=== PATIENT | female | born 1930 | race Caucasian/White ===

== ENCOUNTER 2017-04-26 13:02 | Emergency (ER) | payer MEDICARE, BC, OTHER ==
[2017-04-26] MEDS ORDERED: METHYLPREDNISOLONE INJ 125 MG/2 ML SDV IV ONE (14:17)
--- NOTE | 2017-04-26 14:17 | ER Document Report ---
ED Respiratory Problem - General Chief Complaint: Breathing Difficulty Stated Complaint: DIFFICULTY BREATHING Time Seen by Provider: 04/26/17 13:57 Information source: Patient TRAVEL OUTSIDE OF THE [place] IN LAST 30 DAYS: Yes - HPI Notes: 86-year-old female with history of atrial fibrillation currently on Xarelto, hyperlipidemia and hypertension presents with breathing difficulty for the last 6 days worse the last 3 or 4. Particularly bothersome is a cough which causes tightening in the throat particularly when she is lying down. She notes some mild sputum production but no hemoptysis. Denies any chest discomfort. No new leg swelling or calf pain. She has not noted any fever. She has used Mucinex at home but this seemed to keep her awake at night. Most of her symptoms she feels are more in her throat which she notes the intermittent episodes. It is worse when she lies down so she will go to the recliner which seems to help somewhat but she is really unable to sleep in the recliner. Denies vomiting diarrhea. Denies other new pain otherwise. She was seen yesterday and was placed on Augmentin for what she states was an upper respiratory infection. - Related Data Allergies/Adverse Reactions: erythromycin base [From Erygel] Allergy (Severe, Verified 01/11/14 19:02) sick to stomach amoxicillin [Amoxicillin] Allergy (Verified 01/11/14 19:02) Past Medical History - Social History Smoking Status: Never Smoker Family History: Reviewed & Not Pertinent - Past Medical History Cardiac Medical History: Reports: Hx Atrial Fibrillation, Hx Congestive Heart Failure, Hx Hypercholesterolemia, Hx Hypertension Denies: Hx Coronary Artery Disease, Hx Heart Attack, Hx Peripheral Vascular Disease, Hx Pulmonary Embolism, Hx Heart Murmur Pulmonary Medical History: Reports: Hx Pneumonia - 08/13/12 Denies: Hx Asthma, Hx Bronchitis, Hx COPD, Hx Respiratory Failure, Hx Sleep Apnea, Hx Tuberculosis Neurological Medical History: Denies: Hx Cerebrovascular Accident, Hx Seizures Endocrine Medical History: Reports: Hx Diabetes Mellitus Type 2. Denies: Hx Graves' Disease, Hx Hyperthyroidism, Hx Hypothyroidism Renal/ Medical History: Reports: Hx Ovarian Cysts. Denies: Hx End Stage Renal Disease, Hx Kidney Stones, Hx Peritoneal Dialysis, Hx Pelvic Inflammatory Disease Malignancy Medical History: Denies: Hx Breast Cancer, Hx Cervical Cancer, Hx Leukemia, Hx Lung Cancer, Hx Ovarian Cancer GI Medical History: Reports: Hx Gastroesophageal Reflux Disease - coughing ? reflux, Hx Ulcer - . Denies: Hx Crohn's Disease, Hx Hiatal Hernia, Hx Irritable Bowel, Hx Liver Failure, Hx Pancreatitis Musculoskeltal Medical History: Reports Hx Arthritis - Osteo, Denies Hx Fibromyalgia, Denies Hx Multiple Sclerosis, Denies Hx Muscular Dystrophy Psychiatric Medical History: Reports: Hx Depression Denies: Hx Bipolar Disorder, Hx Dementia, Hx Post Traumatic Stress Disorder, Hx Schizophrenia Traumatic Medical History: Denies: Hx Fractures Infectious Medical History: Denies: Hx HIV Past Surgical History: Reports: Hx Appendectomy - 1957, Hx Cholecystectomy - 2002, Hx Hysterectomy - 1969,1999 BSO, Hx Orthopedic Surgery - right knee X2, left ankle fusion. Denies: Hx Bowel Surgery, Hx Section, Hx Colostomy , Hx Coronary Artery Bypass Graft, Hx Gastric Bypass Surgery, Hx Herniorrhaphy, Hx Mastectomy, Hx Pacemaker, Hx Tonsillectomy, Hx Tubal Ligation - Immunizations Hx Diphtheria, Pertussis, Tetanus Vaccination: Yes - 2005 Hx Pneumococcal Vaccination: 01/11/11 Review of Systems - Review of Systems -: Yes All other systems reviewed and negative Physical Exam - Vital signs Vitals: Resp Pulse Ox 20 98 04/26/17 13:39 04/26/17 13:39 Notes: Physical Exam: GENERAL: VS as per nursing doc. thin female, no apparent distress, slightly hoarse. HEAD: Atraumatic, normocephalic. EYES: Pupils equal round and reactive to light, extraocular movements intact, sclera anicteric, no conjunctival injection or discharge. ENT: Nares patent, oropharynx clear without exudates. There is no evidence of mass, airway is widely patent, moist mucous membranes. NECK: Normal range of motion, supple without lymphadenopathy. LUNGS: Breath sounds are clear to auscultation, slightly coarse. There is some mild upper airway sounds noted. HEART: Normal S1S2. Regular rate and rhythm without faint systolic murmur noted. Equal peripheral pulses. ABDOMEN: Soft, non-tender. EXTREMITIES: Normal range of motion. No calf tenderness. Negative Homans. No edema. NEUROLOGICAL: Normal speech. Normal sensory and motor exams. No gross cerebellar abnormalities. PSYCH: Normal mood, normal affect. Oriented 4. SKIN: Warm, dry, no cyanosis, no splinter hemorrhages. Cap refill < 2 sec. Course - Re-evaluation Re-evalutation: 04/26/17 17:23 Reviewed findings with the patient. She feels better at this point right now. She has not had any more of her proximal coughing episodes which I suspect is laryngeal spasm by what she describes. Steroids seem to have helped at this point. She will continue the Augmentin which she is on. I discussed with her what is written as a prior allergy to amoxicillin. She believes she just had some increased diarrhea with the amoxicillin in the past. We will give her an albuterol inhaler here and make sure she can use it. She will get close recheck in the next couple of days. The sputum here is now starting to become a little bit yellow. She is only had the 2 doses of Augmentin up to this point for the next being due tonight. At this time, we will discharge the patient with return precautions and follow-up recommendations discussed and understood. Verbal discharge instructions given at the bedside and opportunity for questions given and answered. Medication warnings reviewed. Patient is in agreement with this plan and has verbalized understanding of return precautions and the need for primary care follow-up in the next 24-72 hours. - Vital Signs Vital signs: Temp Pulse Resp BP Pulse Ox 98.3 F 20 102/76 98 04/26/17 13:50 04/26/17 13:39 04/26/17 13:50 04/26/17 13:39 - Laboratory Result Diagrams: 04/26/17 14:50 04/26/17 14:50 Laboratory results interpreted by me: 04/26/17 14:50 Sodium 136.1 L BUN 26 H - Diagnostic Test Radiology reviewed: Image reviewed, Reports reviewed - No acute process - EKG Interpretation by Me EKG shows normal: Sinus rhythm - Rate 60, no clear ischemia, normal QRS. Normal intervals. Discharge - Discharge Clinical Impression: Upper respiratory infection, Laryngospasm Condition: Good Disposition: HOME, SELF-CARE Additional Instructions: Continue your antibiotic twice daily until gone or causing significant side effects or severe diarrhea. Since you received her first dose of steroids here today, please start the prescribed Prednisone tomorrow and complete all 5 days of the prescribed medication. Return for any problem or concern, worsening at all. With the provided albuterol inhaler, use it 2 puffs every 6 hours while awake until improved, then as needed. Prescriptions: Prednisone [Deltasone 20 mg Tablet] 2 tab PO DAILY 5 Days #10 tablet Referrals: YAMINI VENCES MD [Primary Care Provider] - Follow up as needed
[2017-04-26] MEDS ORDERED: IPRATROPIUM/ALBUTEROL 0.5-2.5 MG/3 ML AMPUL NEB ONE (14:18)
[2017-04-26 15:02] LABS: ABSOLUTE LYMPHOCYTES (AUTO) 1.8 10^3/uL (0.5-4.7); ABSOLUTE MONOCYTES (AUTO) 0.4 10^3/uL (0.1-1.4); ABSOLUTE NEUT (AUTO) 1.9 10^3/uL (1.7-8.2); BASOPHILS % (AUTO) 0.3 % (0-2); EOSINOPHILS % (AUTO) 0.2 % (0-6); HEMATOCRIT 36.5 % (36.0-47.0); HEMOGLOBIN 12.3 g/dL (12.0-15.5); LYMPHOCYTES % (AUTO) 44.4 % (13-45); MEAN CORPUSCULAR HEMOGLOBIN 29.4 pg (27.0-33.4); MEAN CORPUSCULAR HGB CONC 33.6 g/dL (32.0-36.0); MEAN CORPUSCULAR VOLUME 88 fl (80-97); MONOCYTES % (AUTO) 9.3 % (3-13); PLATELET COUNT 175 10^3/uL (150-450); RED BLOOD COUNT 4.18 10^6/uL (3.72-5.28); RED CELL DISTRIBUTION WIDTH 13.6 % (11.5-14.0); SEGMENTED NEUTROPHILS % (AUTO) 45.8 % (42-78); TOTAL CELLS COUNTED % (AUTO) 100 %; WHITE BLOOD COUNT 4.1 10^3/uL (4.0-10.5)
[2017-04-26 15:33] LABS: ANION GAP 12 (5-19); BLOOD UREA NITROGEN 26 mg/dL (7-20); CALCIUM 9.4 mg/dL (8.4-10.2); CARBON DIOXIDE 23 mmol/L (22-30); CHLORIDE 101 mmol/L (98-107); GLUCOSE 96 mg/dL (75-110); POTASSIUM 4.4 mmol/L (3.6-5.0); SODIUM 136.1 mmol/L (137-145)
[2017-04-26 15:48] LABS: A TYPE INFLUENZA AG NEGATIVE (NEGATIVE)
[2017-04-26 15:49] LABS: B INFLUENZA AG NEGATIVE (NEGATIVE)
--- NOTE | 2017-04-26 16:01 | RADIOLOGY REPORT (SQ) ---
EXAM DESCRIPTION: CERV SP 3 VIEW OR LESS COMPLETED DATE/TIME: 04/26/2017 3:51 pm REASON FOR STUDY: Soft Tissue, Pain/swelling COMPARISON: None. NUMBER OF VIEWS: Two views TECHNIQUE: AP and lateral radiographic images acquired of the cervical spine. LIMITATIONS: None. FINDINGS: MINERALIZATION: Normal. ALIGNMENT: There is some loss of the normal cervical lordosis with grade 1 anterolisthesis of C 4 in relation to C5 VERTEBRAE: Vertebral bodies of normal height. DISCS: There is almost complete loss of the C5-C6 and C6-C7 disc space heights with associated osteop hytic lipping. There is decrease in the C4-C5 disc space height. HARDWARE: None in the spine. SOFT TISSUES: No masses or calcifications. Lung apices clear. OTHER: No other significant finding. IMPRESSION: Degenerative changes as noted above. TECHNICAL DOCUMENTATION: JOB ID: [id number] [employer]- All Rights Reserved
--- NOTE | 2017-04-26 16:03 | RADIOLOGY REPORT (SQ) ---
EXAM DESCRIPTION: CHEST PA/LAT COMPLETED DATE/TIME: 04/26/2017 3:51 pm REASON FOR STUDY: Dyspnea COMPARISON: March 2013 EXAM PARAMETERS: NUMBER OF VIEWS: two views TECHNIQUE: Digital Frontal and Lateral radiographic views of the chest acquired. RADIATION DOSE: NA LIMITATIONS: none FINDINGS: LUNGS AND PLEURA: No opacities, masses or pneumothorax. No pleural effusion. MEDIASTINUM AND HILAR STRUCTURES: No masses or contour abnormalities. HEART AND VASCULAR STRUCTURES: Heart normal size. No evidence for failure. BONES: No acute findings. HARDWARE: None in the chest. OTHER: No other significant finding. IMPRESSION: NO SIGNIFICANT RADIOGRAPHIC FINDING IN THE CHEST. TECHNICAL DOCUMENTATION: JOB ID: [id number] [employer]- All Rights Reserved
[2017-04-26] MEDS ORDERED: ALBUTEROL SULFATE HFA (90 MCG/PUFF) 8 GM MDI (1 MDI/ER DISP) IH PRN (17:31)
[2017-04-26 17:58] VITALS: BP 146/87
--- NOTE | 2017-04-26 20:21 | EKG REPORT ---
SEVERITY:- NORMAL ECG - SINUS RHYTHM : Confirmed by: Inés Rdz 26-Apr-2017 20:20:23
== END 2017-04-26 17:55 | disposition home or self-care (01) ==
LOC: ER 13:02
DX: J06.9 Acute upper respiratory infection, unspecified (principal); J38.5 Laryngeal spasm; R06.02 Shortness of breath; I48.91 Unspecified atrial fibrillation; Z79.01 Long term (current) use of anticoagulants; E78.5 Hyperlipidemia, unspecified; I10 Essential (primary) hypertension; R05 Cough
CPT/HCPCS: 93005; 94640; 99285; 96374; 36415; 85025; 80048; 87804; 72040; 71046; 93010; J2930; J3490; A9270; J7620

== ENCOUNTER 2018-06-12 14:31 | Emergency (ER) | payer MEDICARE, BC, OTHER ==
--- NOTE | 2018-06-12 15:06 | ER Document Report ---
ED General - General Chief Complaint: Fall Stated Complaint: FALL Time Seen by Provider: 06/12/18 14:37 Primary Care Provider: YAMINI VENCES MD [NO LOCAL MD] - Follow up as needed TRAVEL OUTSIDE OF THE [place] IN LAST 30 DAYS: Yes - HPI Notes: Patient is an 87-year-old female with a history of A. fib (on Xarelto), hypertension, and hypercholesterolemia who presents emergency department complaining of abrasions and pain status post fall. Patient states that she was walking to her car when she tripped and fell on the sidewalk. Patient states that she hit the left side of her face and has pain to the left arm/elbow, knees bilaterally, right hand with thumb laceration, and left hip. Patient states that she has otherwise felt well and has not had any recent illness. She has been eating and drinking without difficulty. She is urinating normally. She has no other concerns or complaints. No precipitating symptoms as patient describes this was a fall due to loss of footing. Denies any headache, fever, neck pain, changes in vision/speech/mentation/hearing, URI, sore throat, chest pain, palpitations, syncope, cough, shortness of breath, wheeze, dyspnea, abdominal pain, nausea/vomiting/diarrhea, urinary retention, dysuria, hematuria, loss of control of bowel or bladder, numbness/tingling, saddle anesthesia, muscle paralysis/weakness, or rash. - Related Data Allergies/Adverse Reactions: erythromycin base [From Erygel] Allergy (Severe, Verified 01/11/14 19:02) sick to stomach amoxicillin [Amoxicillin] Allergy (Verified 01/11/14 19:02) Past Medical History - Social History Smoking Status: Never Smoker Family History: Reviewed & Not Pertinent - Past Medical History Cardiac Medical History: Reports: Hx Atrial Fibrillation, Hx Congestive Heart Failure, Hx Hypercholesterolemia, Hx Hypertension Denies: Hx Coronary Artery Disease, Hx Heart Attack, Hx Peripheral Vascular Disease, Hx Pulmonary Embolism, Hx Heart Murmur Pulmonary Medical History: Reports: Hx Pneumonia - 08/13/12 Denies: Hx Asthma, Hx Bronchitis, Hx COPD, Hx Respiratory Failure, Hx Sleep Apnea, Hx Tuberculosis Neurological Medical History: Denies: Hx Cerebrovascular Accident, Hx Seizures Endocrine Medical History: Reports: Hx Diabetes Mellitus Type 2. Denies: Hx Graves' Disease, Hx Hyperthyroidism, Hx Hypothyroidism Renal/ Medical History: Reports: Hx Ovarian Cysts. Denies: Hx End Stage Renal Disease, Hx Kidney Stones, Hx Peritoneal Dialysis, Hx Pelvic Inflammatory Disease Malignancy Medical History: Denies: Hx Breast Cancer, Hx Cervical Cancer, Hx Leukemia, Hx Lung Cancer, Hx Ovarian Cancer GI Medical History: Reports: Hx Gastroesophageal Reflux Disease - coughing ? reflux, Hx Ulcer - . Denies: Hx Crohn's Disease, Hx Hiatal Hernia, Hx Irritable Bowel, Hx Liver Failure, Hx Pancreatitis Musculoskeletal Medical History: Reports Hx Arthritis - Osteo, Denies Hx Fibromyalgia, Denies Hx Multiple Sclerosis, Denies Hx Muscular Dystrophy Psychiatric Medical History: Reports: Hx Depression Denies: Hx Bipolar Disorder, Hx Dementia, Hx Post Traumatic Stress Disorder, Hx Schizophrenia Traumatic Medical History: Denies: Hx Fractures Infectious Medical History: Denies: Hx HIV Past Surgical History: Reports: Hx Appendectomy - 1957, Hx Cholecystectomy - 2002, Hx Hysterectomy - 1969,1999 BSO, Hx Orthopedic Surgery - right knee X2, left ankle fusion. Denies: Hx Bowel Surgery, Hx Section, Hx Colostomy, Hx Coronary Artery Bypass Graft, Hx Gastric Bypass Surgery, Hx Herniorrhaphy, Hx Mastectomy, Hx Pacemaker, Hx Tonsillectomy, Hx Tubal Ligation - Immunizations Hx Diphtheria, Pertussis, Tetanus Vaccination: Yes - 2005 Hx Pneumococcal Vaccination: 01/11/11 Review of Systems - Review of Systems -: Yes All other systems reviewed and negative Physical Exam - Vital signs Vitals: Temp Pulse Resp BP Pulse Ox 97.6 F 69 18 189/51 H 98 06/12/18 14:55 06/12/18 14:55 06/12/18 14:55 06/12/18 14:55 06/12/18 14:55 - Notes Notes: PHYSICAL EXAMINATION: accompanied by female nursejulia GENERAL: Well-appearing, well-nourished and in no acute distress. A&Ox4. Answers questions appropriately. Very pleasant. HEAD/face: there is mild ecchymosis to the left inferolateral orbit with a small abrasion to the left superior eyebrow. No raccoon eyes/sharpe sign. No cranial tenderness, bogginess, or hematoma. No missing/loose teeth or other facial tenderness. EYES: Pupils equal round and reactive to light, extraocular movements intact, sclera anicteric, conjunctiva are normal. No entrapment ENT: EAC clear b/l. TM's intact b/l without erythema, fluid, or perforation. Nares patent and without discharge. oropharynx clear without exudates. No t onsilar hypertrophy or erythema. Moist mucous membranes. No sinus tenderness. No hemotympanum/CSF discharge. NECK: Normal range of motion, supple without lymphadenopathy. No rigidity. No midline tenderness. Chest: no ecchymosis. No flail chest. equal rise/fall. Non-tender LUNGS: Breath sounds clear to auscultation bilaterally and equal. No wheezes rales or rhonchi. HEART: Regular rate and rhythm without murmurs, rubs, gallops. ABDOMEN: Soft, nontender, nondistended abdomen. No guarding, no rebound. No masses appreciated. Normal bowel sounds present. No CVA tenderness bilater ally. No ecchymosis Musculoskeletal: Rt hand: there is an avulsion skin injury to the anterodistal thumb with + tenderness and swelling associated to the hand/thumb. LROM at IP jt. Strength 5+/5. N/V intact distal. Left UE: there is tenderness to palpation of the prox and distal humerus and to the left elbow w/o significant deformity, ecchymosis, or erythema. There is bursitis to the left elbow noted without erythema (chronic per patient). FROM. Strength 5+/5. N/V intact distal. Lt hip/knee: + tenderness to the left lateral hip and to the distal femur/proximal knee. There is also tenderness to the anterior knee to palp w/ecchymosis and a small skin abrasion. FROM otherwise. Strength 5+/5. N/V intact distal. Low back: FROM to passive/active. Strength 5+/5. No stepoffs or deformities. No other bony tenderness or ecchymosis. + mild tenderness b/l L-spine. No foot drop. Extremities: No cyanosis, clubbing, or edema b/l. Peripheral pulses 2+. Capillary refill less than 2 seconds. NEUROLOGICAL: NIH 0. GCS 15. Cranial nerves grossly intact. Normal speech. Normal sensory, motor exams. Reflexes 2+ b/l. GLENDY's negative. Pronator drift negative. Heel/michel, finger/nose wnl. PSYCH: Normal mood, normal affect. SKIN: see above. Course - Re-evaluation Re-evalutation: 06/12/18 17:21 Patient is an afebrile, well-hydrated, 87-year-old female who presents to the ED with joint pains s/p fall and rt thumb dislocation with noted skin abrasions. Vitals are acceptable without any significant tachycardia, tachypnea, or hypoxia. PE is otherwise unremarkable for any neurovascular compromise, obvious tendon/ligament rupture, septic joint. CT imaging of the head/neck/face unremarkable. XR's grossly unremarkable for acute pathology aside from the rt thumb dislocation. Thumb was reduced successfully w/o any complications. Finger splint provided today along with Tdap and wound care. Patient is nontoxic-appearing. Patient is able to ambulate and weight-bear. No other labs or imaging warranted at this time based on H&P. Rx for keflex as precautionary due to skin avulsion on thumb and noted abrasions. Conservative measures otherwise for symptoms. Recheck with your PCM in 2-3 days. Consider consult orthopedics. Return to the ED with any worsening/concerning symptoms otherwise as reviewed in discharge. Patient is in agreement. Cross-reactivity reviewed (rash with PCN). - Vital Signs Vital signs: Temp Pulse Resp BP Pulse Ox 97.6 F 69 18 189/51 H 98 06/12/18 14:55 06/12/18 14:55 06/12/18 14:55 06/12/18 14:55 06/12/18 14:55 Procedures - Joint Reduction/Fracture Care Right Thumb Time completed: 16:25 Consent obtained: Yes Conscious sedation: No Pre-procedure NV exam: Yes - normal Post-procedure NV exam: Yes - normal Post-reduction x-ray: Joint reduced Reduction attempts: 1 Complications: No Discharge - Discharge Clinical Impression: Abrasion of skin, Left arm pain Fall Qualifiers: Encounter type: initial encounter Qualified Code(s): W19.XXXA - Unspecified fall, initial encounter Avulsion of skin of finger Qualifiers: Encounter type: initial encounter Qualified Code(s): S61.209A - Unspecified open wound of unspecified finger without damage to nail, initial encounter Dislocation of right thumb Qualifiers: Encounter type: initial encounter Qualified Code(s): S63.104A - Unspecified dislocation of right thumb, initial encounter Bilateral knee pain Qualifiers: Chronicity: acute Qualified Code(s): M25.561 - Pain in right knee; M25.562 - Pain in left knee Low back pain Qualifiers: Chronicity: acute Back pain laterality: bilateral Sciatica presence: without sciatica Qualified Code(s): M54.5 - Low back pain Condition: Stable Disposition: HOME, SELF-CARE Instructions: Head Injury Precautions ([facility]) Additional Instructions: Rest, Ice, Compression, Elevation Use crutches/splint as directed Keep the skin clean and wash with soap and water Triple antibiotic ointment with daily dressing changes Tylenol as needed F/u with your PCP in 2-3 days for a recheck Call orthopedics tomorrow to schedule an appointment for further evaluation and management for your thumb Return to the ED with any worsening symptoms and/or development of fever, headache, changes in behavior/mentation/vision/speech, chest pain, palpitations, syncope, shortness of breath, trouble breathing, abdominal pain, n/v/d, blood in stool/urine, loss of control of bowel/bladder, urinary retention, muscle weakness/paralysis, saddle anesthesia, numbness/tingling, or other worsening symptoms that are concerning to you. Prescriptions: Cephalexin Monohydrate [Keflex 500 mg Capsule] 500 mg PO BID #10 capsule Forms: Elevated Blood Pressure Referrals: YAMINI VENCES MD [NO LOCAL MD] - Follow up as needed [facility] [Provider Group] - Follow up in 3-5 days
--- NOTE | 2018-06-12 15:44 | RADIOLOGY REPORT (SQ) ---
EXAM DESCRIPTION: CT HEAD WITHOUT COMPLETED DATE/TIME: 06/12/2018 3:23 pm REASON FOR STUDY: pain s/p fall on xarelto COMPARISON: None. TECHNIQUE: Axial images acquired through the brain without intravenous contrast. Images reviewed wi th bone, brain and subdural windows. Additional sagittal and coronal reconstructions were generated. Images stored on PACS. All CT scanners at this facility use dose modulation, iterative reconstruction, and/or weight based d osing when appropriate to reduce radiation dose to as low as reasonably achievable (ALARA). [facility]: Dose Right [facility]: CareDose [facility]: Dose Right [facility]: Teradose 4D [facility]: Wild Brain RADIATION DOSE: CT Rad equipment meets quality standard of care and radiation dose reduction techniq ues were employed. CTDIvol: 53.2 mGy. DLP: 1124 mGy-cm. mGy. LIMITATIONS: None. FINDINGS: VENTRICLES: Prominent. CEREBRUM: No masses. No hemorrhage. No midline shift. Areas of low density in the white matter mos t likely due to chronic micro-vascular ischemic change. No evidence for acute infarction. CEREBELLUM: No masses. No hemorrhage. No alteration of density. No evidence for acute infarction. EXTRAAXIAL SPACES: Mild age-related involutional change. No fluid collections. No masses. ORBITS AND GLOBE: No intra- or extraconal masses. Normal contour of globe without masses. CALVARIUM: No fracture. PARANASAL SINUSES: Opacified right maxillary sinus. SOFT TISSUES: No mass or hematoma. OTHER: No other significant finding. IMPRESSION: MILD CHRONIC CHANGES OF ATROPHY AND MICROVASCULAR ISCHEMIA. NO ACUTE PROCESS. EVIDENCE OF ACUTE STROKE: NO. TECHNICAL DOCUMENTATION: JOB ID: [id number] Quality ID # [id number]: Final reports with documentation of one or more dose reduction techniques (e.g., Au tomated exposure control, adjustment of the mA and/or kV according to patient size, use of iterative reconstruction technique) 2010 [employer]- All Rights Reserved Reading location - IP/workstation name: [email or web address]
--- NOTE | 2018-06-12 15:46 | RADIOLOGY REPORT (SQ) ---
EXAM DESCRIPTION: CT FACIAL AREA WITHOUT COMPLETED DATE/TIME: 06/12/2018 3:23 pm REASON FOR STUDY: pain s/p fall, left orbital pain COMPARISON: None. TECHNIQUE: Noncontrasted images through the facial bones and orbits windowed for bone and soft tissu e. Additional coronal and sagittal reconstructed images reviewed. All images stored on PACS. All CT scanners at this facility use dose modulation, iterative reconstruction, and/or weight based d osing when appropriate to reduce radiation dose to as low as reasonably achievable (ALARA). [facility]: Dose Right [facility]: CareDose [facility]: Dose Right [facility]: Teradose 4D [facility]: Restaro RADIATION DOSE: CT Rad equipment meets quality standard of care and radiation dose reduction techniq ues were employed. CTDIvol: 30.4 mGy. DLP: 560 mGy-cm. mGy. LIMITATIONS: None. FINDINGS: FACIAL BONES: No fracture or bone lesion. ORBITS: Intact. No fracture. Symmetric intact globes and retroorbital soft tissues. PARANASAL SINUSES: Chronic right maxillary sinusitis. SOFT TISSUES: No mass or edema. INFERIOR BRAIN: See separate report of the same date. OTHER: No other significant finding. IMPRESSION: No fracture. TECHNICAL DOCUMENTATION: JOB ID: [id number] Quality ID # [id number]: Final reports with documentation of one or more dose reduction techniques (e.g., Au tomated exposure control, adjustment of the mA and/or kV according to patient size, use of iterative reconstruction technique) 2010 [employer]- All Rights Reserved Reading location - IP/workstation name: [email or web address]
--- NOTE | 2018-06-12 15:49 | RADIOLOGY REPORT (SQ) ---
EXAM DESCRIPTION: CT CERVICAL SPINE WITHOUT COMPLETED DATE/TIME: 06/12/2018 3:23 pm REASON FOR STUDY: pain s/p fall COMPARISON: None. TECHNIQUE: Axial images acquired through the cervical spine without intravenous contrast. Images re viewed with lung, soft tissue and bone windows. Reconstructed coronal and sagittal MPR images review ed. Images stored on PACS. All CT scanners at this facility use dose modulation, iterative reconstruction, and/or weight based d osing when appropriate to reduce radiation dose to as low as reasonably achievable (ALARA). [facility]: Dose Right [facility]: CareDose [facility]: Dose Right [facility]: Teradose 4D [facility]: iwi RADIATION DOSE: CT Rad equipment meets quality standard of care and radiation dose reduction techniq ues were employed. CTDIvol: 8.8 mGy. DLP: 209 mGy-cm. mGy. LIMITATIONS: None. FINDINGS: ALIGNMENT: Straightening of the lordotic curve. Grade 1 anterolisthesis C4 relative to C5 and to lesser degree C6 relative to C5. MINERALIZATION: Normal. VERTEBRAL BODIES: No fractures or dislocation. DISCS: Multilevel disc space narrowing with osteophytes. FACETS, LATERAL MASSES, POSTERIOR ELEMENTS: Facet arthropathy. No fractures. No dislocation. No ac [place] findings. HARDWARE: None in the spine. VISUALIZED RIBS: No fractures. LUNG APICES AND SOFT TISSUES: No significant or acute findings. OTHER: No other significant finding. IMPRESSION: CHRONIC DEGENERATIVE CHANGES. NO ACUTE FINDINGS. TECHNICAL DOCUMENTATION: JOB ID: [id number] Quality ID # [id number]: Final reports with documentation of one or more dose reduction techniques (e.g., Au tomated exposure control, adjustment of the mA and/or kV according to patient size, use of iterative reconstruction technique) 2010 [employer]- All Rights Reserved Reading location - IP/workstation name: [email or web address]
[2018-06-12] MEDS ORDERED: DIPH/PERTUSS(ACELL)/TETANUS VAC/PF 0.5 ML SYR (>=10YO) IM ONE (16:12)
--- NOTE | 2018-06-12 16:14 | RADIOLOGY REPORT (SQ) ---
EXAM DESCRIPTION: ELBOW LEFT OVER 2 VIEWS COMPLETED DATE/TIME: 06/12/2018 3:59 pm REASON FOR STUDY: pain s/p fall, chronic bursitis hx COMPARISON: None. NUMBER OF VIEWS: Three views. TECHNIQUE: AP, lateral and oblique radiographic images acquired of the left elbow. LIMITATIONS: Marked degenerative change. FINDINGS: MINERALIZATION: Osteopenia. BONES: No displaced fracture. JOINT: Small joint effusion. Loose bodies. SOFT TISSUES: No foreign body. OTHER: No other significant finding. IMPRESSION: Small joint effusion. No displaced fracture identified. TECHNICAL DOCUMENTATION: JOB ID: [id number] [employer]- All Rights Reserved Reading location - IP/workstation name: [email or web address]
--- NOTE | 2018-06-12 16:16 | RADIOLOGY REPORT (SQ) ---
EXAM DESCRIPTION: FEMUR LEFT COMPLETED DATE/TIME: 06/12/2018 3:59 pm REASON FOR STUDY: pain s/p fall, prox/distal pain COMPARISON: None. NUMBER OF VIEWS: Two views. TECHNIQUE: Two radiographic images acquired of the left femur to include hip and knee in at least on e projection. LIMITATIONS: None. FINDINGS: MINERALIZATION: Normal. BONES: No acute fracture. No worrisome bone lesions. SOFT TISSUES: No obvious swelling or foreign body. OTHER: No other significant finding. IMPRESSION: NEGATIVE STUDY OF THE LEFT FEMUR. NO RADIOGRAPHIC EVIDENCE OF ACUTE INJURY. TECHNICAL DOCUMENTATION: JOB ID: [id number] [employer]- All Rights Reserved Reading location - IP/workstation name: [email or web address]
--- NOTE | 2018-06-12 16:18 | RADIOLOGY REPORT (SQ) ---
EXAM DESCRIPTION: HUMERUS LEFT COMPLETED DATE/TIME: 06/12/2018 3:59 pm REASON FOR STUDY: pain s/p fall prox/distal COMPARISON: 01/21/2014 NUMBER OF VIEWS: Two views. TECHNIQUE: Two radiographic images were acquired of the left humerus to include elbow and shoulder i n at least one projection. LIMITATIONS: None. FINDINGS: MINERALIZATION: Normal. BONES: Stable advanced arthritic changes at the elbow joint. Small loose bodies are noted within th e joint space. No acute fracture or dislocation. SOFT TISSUES: No obvious swelling or foreign body. OTHER: No other significant finding. IMPRESSION: 1. No significant interval changes since the prior study dated 01/11/2014. Stable advan lesly arthritic changes at the elbow joint. 2. No acute osseous findings. TECHNICAL DOCUMENTATION: JOB ID: [id number] [employer]- All Rights Reserved Reading location - IP/workstation name: [email or web address]
--- NOTE | 2018-06-12 16:18 | RADIOLOGY REPORT (SQ) ---
EXAM DESCRIPTION: HAND RIGHT 3 VIEWS COMPLETED DATE/TIME: 06/12/2018 3:59 pm REASON FOR STUDY: pain s/p fall with thumb lac COMPARISON: None. EXAM PARAMETERS: NUMBER OF VIEWS: Three views. TECHNIQUE: AP, lateral and oblique radiographic images acquired of the right hand. LIMITATIONS: None. FINDINGS: MINERALIZATION: Osteopenia. BONES: Radial dislocation of the distal 1st interphalangeal joint. JOINTS: Advanced osteoarthritis base of 1st metacarpal. SOFT TISSUES: No foreign body. OTHER: No other significant finding. IMPRESSION: Dislocation distal 1st interphalangeal joint. TECHNICAL DOCUMENTATION: JOB ID: [id number] [employer]- All Rights Reserved Reading location - IP/workstation name: [email or web address]
--- NOTE | 2018-06-12 16:21 | RADIOLOGY REPORT (SQ) ---
EXAM DESCRIPTION: KNEE BILATERAL 1-2 VIEWS COMPLETED DATE/TIME: 06/12/2018 3:59 pm REASON FOR STUDY: pain s/p fall COMPARISON: None. NUMBER OF VIEWS: Four views. TECHNIQUE: AP and lateral radiographic images acquired of the right and left knee. LIMITATIONS: None. FINDINGS: MINERALIZATION: Normal. BONES: No acute fracture or dislocation. No worrisome bone lesions. JOINT: No effusion. SOFT TISSUES: No soft tissue swelling. No radio-opaque foreign body. OTHER: No other significant finding. IMPRESSION: NO RADIOGRAPHIC EVIDENCE OF ACUTE INJURY. TECHNICAL DOCUMENTATION: JOB ID: [id number] [employer]- All Rights Reserved Reading location - IP/workstation name: [email or web address]
--- NOTE | 2018-06-12 16:24 | RADIOLOGY REPORT (SQ) ---
EXAM DESCRIPTION: L SPINE WHOLE COMPLETED DATE/TIME: 06/12/2018 3:59 pm REASON FOR STUDY: low back pain s/p fall COMPARISON: 10/06/2010 NUMBER OF VIEWS: Five views including obliques. TECHNIQUE: AP, lateral, oblique, and sacral radiographic images acquired of the lumbar spine. LIMITATIONS: None. FINDINGS: MINERALIZATION: Normal. SEGMENTATION: Normal. No transitional anatomy. ALIGNMENT: Grade 1 anterolisthesis of L5 on S1, stable finding. VERTEBRAE: Maintained height. No fracture or worrisome bone lesion. DISCS: Multilevel disc space narrowing, more pronounced at L4- 5 and L5-S1 with mild to moderate int erval progression since the prior examination. POSTERIOR ELEMENTS: Multilevel moderate to moderate severe facet arthrosis, more so lower lumbar spi ne. Pedicles are intact. No pars defect or posterior arch defects. HARDWARE: None in the spine. PARASPINAL SOFT TISSUES: Normal. PELVIS: Intact as visualized. No fractures or worrisome bone lesions. SI joints intact. OTHER: Atherosclerotic changes involving the abdominal aorta. IMPRESSION: 1. No acute osseous findings. 2. Degenerative spondylosis, facet arthrosis and degenerative disc disease, more pronounced at L4-L5 and L5-S1 with mild to moderate interval progression since the prior study dated 10/06/2010. Grade 1 anterolisthesis of L5 on S1. TECHNICAL DOCUMENTATION: JOB ID: [id number]- All Rights Reserved Reading location - IP/workstation name: [email or web address]
--- NOTE | 2018-06-12 17:21 | RADIOLOGY REPORT (SQ) ---
EXAM DESCRIPTION: FINGER RIGHT COMPLETED DATE/TIME: 06/12/2018 4:47 pm REASON FOR STUDY: thumb s/p possible reduction COMPARISON: None. EXAM PARAMETERS: NUMBER OF VIEWS: Three views. TECHNIQUE: AP, lateral and oblique radiographic images acquired of the right hand. LIMITATIONS: None. FINDINGS: MINERALIZATION: Normal. BONES: No acute fracture or dislocation. Severe osteoarthritis of the 1st carpometacarpal joint with mild varus angulation and multiple ossicles in the joint space. JOINTS: No effusion. SOFT TISSUES: No significant soft tissue swelling. No radiopaque foreign body. OTHER: No other significant finding. IMPRESSION: No acute fracture or dislocation. Severe osteoarthritis of the 1st carpometacarpal join t with mild varus angulation and multiple ossicles in the joint space. TECHNICAL DOCUMENTATION: JOB ID: [id number] 2010 [employer]- All Rights Reserved Reading location - IP/workstation name: [email or web address]
[2018-06-12 18:06] VITALS: BP 179/72
== END 2018-06-12 18:20 | disposition home or self-care (01) ==
LOC: ER 14:31
DX: S00.212A Abrasion of left eyelid and periocular area, initial encounter (principal); S61.011A Laceration without foreign body of right thumb without damage to nail, initial encounter; S61.209A Unspecified open wound of unspecified finger without damage to nail, initial encounter; S09.93XA Unspecified injury of face, initial encounter; M54.5 Low back pain; M25.561 Pain in right knee; M25.562 Pain in left knee; M25.552 Pain in left hip; W01.0XXA Fall on same level from slipping, tripping and stumbling without subsequent striking against object, initial encounter; I48.91 Unspecified atrial fibrillation; E78.00 Pure hypercholesterolemia, unspecified; I50.9 Heart failure, unspecified; I11.0 Hypertensive heart disease with heart failure; Z79.02 Long term (current) use of antithrombotics/antiplatelets; Z88.3 Allergy status to other anti-infective agents; Z88.0 Allergy status to penicillin; Z90.49 Acquired absence of other specified parts of digestive tract; Z90.710 Acquired absence of both cervix and uterus
CPT/HCPCS: 70450; 70486; 72110; 72125; 90471; 90715; 99284